=== PATIENT | male | born 1940 | race Caucasian/White ===

== ENCOUNTER 2017-02-19 06:02 | Observation (INO) | payer OTHER, MEDICARE ==
[2017-02-12 10:13] LABS: BASOPHILS 0.2 %; BASOPHILS ABSOLUTE 0.01 10/3/uL (0.0-0.16); EOSINOPHILS 1.3 %; EOSINOPHILS ABSOLUTE 0.06 10/3/uL (0.0-0.53); HEMOGLOBIN 13.5 g/dL (13.6-17.8); IMMATURE GRANULOCYTES 0.2 %; IMMATURE GRANULOCYTES ABSOLUTE 0.01 10/3/uL (0.0-0.11); LYMPHOCYTES 32.3 %; MEAN CORPUS HGB CONC 34.7 g/dL (32.0-36.0); MEAN CORPUSCULAR HEMOGLOB 31.2 pg (26.0-34.0); MEAN CORPUSCULAR VOLUME 89.8 fL (80-100); MEAN PLATELET VOLUME 10.3 fL (9.2-13.0); MONOCYTES 9.5 %; MONOCYTES ABSOLUTE 0.44 10/3/uL (0.21-1.20); NEUTROPHILS 56.5 %; NEUTROPHILS ABSOLUTE 2.63 10/3/uL (2.02-8.40); PLATELET COUNT 174 10/3/uL (150-400); RBC DISTRIBUTION WIDTH 13.4 % (12.0-16.0); RED CELL COUNT 4.33 10/6/uL (4.7-6.1); WHITE BLOOD CELLS 4.7 10/3/uL (4.5-10.5)
[2017-02-12 10:14] LABS: HEMATOCRIT 38.9 % (40.0-51.0); MANUAL DIFF NO %
[2017-02-12 10:32] LABS: A/G RATIO 1.5 (0.7-1.9); ALBUMIN 3.9 G/DL (3.5-5.0); ALKALINE PHOSPHATASE 73 U/L (45-117); BUN (BLOOD UREA NITROGEN) 28 MG/DL (6-23); CALCIUM, SERUM 9.1 MG/DL (8.5-10.4); CHLORIDE, SERUM 108 MMOL/L (96-112); CO2 (CARBON DIOXIDE) 30 MMOL/L (24-34); CREATININE 0.91 MG/DL (0.70-1.30); GFR AFRICAN AMERICAN 96 ML/MIN (>=60); GFR NON AFRICAN AMERICAN 83 ML/MIN (>=60); GLOBULIN 2.6 G/DL (2.5-4.1); GLUCOSE, SERUM 92 MG/DL (60-99); POTASSIUM, SERUM 5.1 MMOL/L (3.5-5.3); SGOT(AST) 21 U/L (5-40); SGPT(ALT) 31 U/L (5-65); SODIUM, SERUM 141 MMOL/L (135-148); TOTAL BILIRUBIN 0.7 MG/DL (0-1.2); TOTAL PROTEIN 6.5 G/DL (6.0-8.5)
--- NOTE | ~2017-02-19 | OP ---
Record Of Operation [facility] [address] [place] [address] NAME: XENA LUCAS : 44 STATUS : DIS Marilee PAT#: [id number] AGE: 76 ADM/REG DATE : 02/19/17 MR#: [id number] REPORT SERV DATE: 02/20/17 DICTATED BY: HAVEN GARBER III DATE: 02/20/17 REPORT STATUS : Draft TRANSCRIBED BY: MODL DATE: 02/20/17 DATE OF PROCEDURE: 02/20/2017 ADDENDUM It should be noted that the left lower quadrant incisional hernia was incarcerated. This was a recurrent incarcerated incisional hernia. The bowel which was in the hernia was reduced laparoscopically. TONY/CARMELA Haven Garber III, M.D. / [id number] CC: Pia Morocho III, D.O.
--- NOTE | ~2017-02-19 | OP ---
Record Of Operation [facility] [address] [place]. [address] NAME: XENA LUCAS : 42 STATUS : ADM Marilee PAT#: [id number] AGE: 76 ADM/REG DATE : 02/19/17 MR#: [id number] REPORT SERV DATE: 02/19/17 DICTATED BY: HAVEN GARBER III DATE: 02/19/17 REPORT STATUS : Draft TRANSCRIBED BY: MODBlaire DATE: 02/19/17 DATE OF PROCEDURE: 02/19/2017 PREOPERATIVE DIAGNOSES: 1. 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 2. Symptomatic supraumbilical incisional hernia. POSTOPERATIVE DIAGNOSES: 1. 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 2. Symptomatic supraumbilical incisional hernia. PROCEDURES: Laparoscopic assisted repair of a recurrent symptomatic left lower quadrant spigelian hernia and repair of supraumbilical hernia. SURGEON: Haven Garber M.D. ANESTHESIA: General with intubation. COMPLICATIONS: None. ESTIMATED BLOOD LOSS: 30 mL. SPECIMENS: None. DRAINS: Von-Barnes in subcutaneous tissue and left lateral abdominal wall incision. LAP AND SPONGE COUNT: Correct x3. BRIEF HISTORY: This 76-year-old male presented with a symptomatic recurrent left lower quadrant spigelian hernia. This has been repaired on two separate occasions in the past. He also has supraumbilical hernia which was incisional hernia related to previous trocar site. It was felt that repair of these was indicated. We planned to attempt to perform this laparoscopically, but due to his previous multiple procedures, it was explained that open procedure might be required. The high risk for recurrence of these hernias was explained, the high risk for enterotomy or other surgical complications because of his multiple abdominal operations was explained. The procedure risks, benefits, and alternatives, including but not limited to the risk for bleeding, infection, enterotomy, injury to any abdominal structure, postop small bowel obstruction, ileus, recurrence of either or both hernias, seroma formation, hematoma formation, infection of mesh or enterocutaneous fistula requiring removal of the mesh, and unforeseen complications including deep venous thrombosis, pulmonary embolus, myocardial infarction, stroke, pneumonia, and were fully and completely explained to the patient prior to the surgery. The expected length of the recovery was explained. The fact that this was a major operation with risk for major morbidity and mortality was explained. The patient had questions, which were answered. He fully understood the risks and agreed to the surgery as planned. Record Of Operation [facility] [address] [place]. [address] NAME: XENA LUCAS : 44 STATUS : ADM Marilee PAT#: [id number] AGE: 76 ADM/REG DATE : 02/19/17 MR#: [id number] REPORT SERV DATE: 02/19/17 DICTATED BY: HAVEN GARBER III DATE: 02/19/17 REPORT STATUS : Draft TRANSCRIBED BY: CARMELA DATE: 02/19/17 DESCRIPTION OF PROCEDURE: After being properly identified and after discussing the risks and benefits of the surgery with the patient and his family in the preoperative area again, he was taken to the operating room and placed in supine position on the operating room table. It should be noted that the hernias were identified with his help in the preoperative area. General anesthesia was administered. He was intubated without difficulty. A De León catheter was inserted. The abdomen was prepped and draped sterilely in the usual fashion. After an appropriate "time-out" per JCAHO standards, a small vertical incision was made in the subxiphoid area in the midline. The incision was continued through the subcutaneous tissue. Hemostasis was controlled with the cautery. The incision was continued through the fascia. The abdominal cavity was entered under direct vision. A #51-choziuq-gmyowm Origin trocar was placed under direct vision into the peritoneal cavity. The balloon was inflated. The abdominal cavity was insufflated to about 13 mmHg of carbon dioxide. The laparoscope was placed through the trocar. The abdomen was inspected. The hernia was located in the left lower quadrant. There was a large amount of bowel and omentum adherent to the previously placed mesh. A small vertical incision was made just above the umbilicus over the supraumbilical hernia. #10 trocar was placed through this under direct vision with the laparoscope. A 5 mm trocar was then placed in the midline, midway between the umbilicus and the pubis, under direct vision with the laparoscope. The patient was rotated slightly to his right. The appropriate instruments were placed through the trocars. Using sharp dissection, the adhesions between the omentum and the underside of the abdominal wall in the left lower quadrant were divided. There was noted to be mesh in place. There was noted to be the left colon densely adherent to the mesh in this area. The hernia was identified. The colon was densely adherent to the mesh. We tried to dissect this very carefully meticulously away from the mesh, but it was so densely adherent, I felt I could not proceed safely laparoscopically. Multiple attempts again were made to carefully dissect or tease the colon away from the mesh, but it was so adherent that it would not safely free up to allow for us to proceed laparoscopically. Based on this, it was my judgment that it was not safe to proceed laparoscopically and that open procedure would be required. A vertical incision was made in the left lower quadrant directly over the fascial defect. The incision was continued through the subcutaneous tissue. Hemostasis was controlled with the cautery. The incision was continued through the fascia. Hemostasis was controlled with the cautery. The external oblique fascia was opened. We identified the fascial defect in the internal oblique fascia. Using sharp dissection, the tissues around this anteriorly and posteriorly were mobilized. Great care was taken not to injure the underlying bowel which was still adherent. The fascial defect itself was fairly small, about 2 cm in size. It was felt that this fascial defect could be reapproximated, using the previously placed mesh, which was still anchored to the fascia. The fascial defect in this area was then closed under direct vision with interrupted #1 Prolene sutures. The previously placed mesh was incorporated into the closure as it was Record Of Operation [address] [place]. [address] NAME: XENA LUCAS : 44 STATUS : ADM Marilee PAT#: [id number] AGE: 76 ADM/REG DATE : 02/19/17 MR#: [id number] REPORT SERV DATE: 02/19/17 DICTATED BY: HAVEN GARBER III DATE: 02/19/17 REPORT STATUS : Draft TRANSCRIBED BY: MODL DATE: 02/19/17 still intact and attached. This resulted in good closure of this defect. Great care was taken not to injure the underlying colon. The external oblique fascia and muscle were then closed with interrupted #1 Prolene sutures. A Von-Barnes drain was brought through a separate stab wound and placed in the subcutaneous tissue. Hemostasis was controlled. The subcutaneous tissue was closed with a running 3-0 chromic suture. The skin was closed a with running subcuticular 4-0 Monocryl stitch. The abdominal cavity was then re-insufflated. We then inspected the area with the laparoscope. The hernia was noted to be repaired. The colon was still adherent to the area, but had not been injured or encroached upon and the defect was closed nicely. At this time, all trocars were removed. Hemostasis was assured. The fascia of both the subxiphoid and supraumbilical incisions was closed with interrupted 0 Prolene sutures. The supraumbilical hernia was closed in this fashion with interrupted 0 Prolene sutures. This came together nicely with no tension. It was felt that mesh repair was not required. Hemostasis was assured. The subcutaneous tissue of each of this incision was closed with running 3-0 chromic suture. The skin incisions were closed with running subcuticular 4-0 Monocryl stitches. The lower trocar site was also closed by closing the skin in this fashion. The incisions were injected with 0.5% Marcaine. Dressings were applied. Anesthesia was reversed, and the patient was taken to the recovery room in stable condition. He tolerated the procedure well. His family was informed the results of surgery. The patient will remain in the hospital for postoperative care. I explained the patient's that this left lower quadrant hernia is at high risk for recurrence again because of the patient's weight and the fact that this was the third repair for this particular hernia. She was advised that he will need to be extremely careful for the next 8 weeks in terms of minimal weight lifting and straining. TONY/CARMELA Haven Garber III, M.D. / [id number] CC: Haven Garber III, M.D.
--- NOTE | ~2017-02-19 | PREOPHP ---
PreOp History and Physical [facility] [address] [place]. [address] NAME: XENA LUCAS : 44 [place]US : [place] [facility]#: [id number] AGE: 76 ADM/REG DATE : MR#: [id number] REPORT SERV DATE: 02/18/17 DICTATED BY: HAVEN GARBER III DATE: 01/31/17 REPORT STATUS : Draft TRANSCRIBED BY: MODL DATE: 01/31/17 HISTORY OF PRESENT ILLNESS: This 76-year-old male comes to the operating room for laparoscopic repair, possible laparotomy for recurrent supraumbilical hernia and left lower quadrant abdominal wall hernia. The patient has previous supraumbilical and left lower quadrant abdominal hernias. These were repaired elsewhere in 04/2015. He had a recurrence of the left lower quadrant hernia, which was repaired in 08/2016. Both of these hernias have recurred. They are symptomatic in terms of local pain and discomfort and obstructive symptoms. The patient has had no nausea, vomiting, or definite evidence for obstruction. He comes now for laparoscopic repair of this hernias, possible laparotomy. I have explained the patient fully that open procedure may likely be required because of the fact these are recurrent and because of his obesity. PAST MEDICAL HISTORY: Essentially unremarkable, otherwise. PAST SURGICAL HISTORY: Includes periumbilical hernia repair and bilateral inguinal hernia repair. Left hip replacement, right hip replacement, left lower quadrant spigelian hernia repair x2. FAMILY HISTORY: Positive for diabetes and lung cancer. MEDICATIONS: None regularly. ALLERGIES: NONE. SOCIAL HISTORY: No history of tobacco or alcohol use. REVIEW OF SYSTEMS: The complains of fatigue, swelling in the hands and feet, and back pain. His 14-point review of systems is otherwise unremarkable. PHYSICAL EXAMINATION: GENERAL: Reveals an obese male, in no acute distress. He is alert and oriented x3. VITAL SIGNS: Blood pressure 136/82, pulse 71, and temperature 97.1. HEENT: Unremarkable. NEUROLOGIC: Cranial nerves 2 through 12 are normal. LUNGS: Clear. CARDIAC: Normal. ABDOMEN: Soft and nontender. About 1-2 cm above the umbilicus, there is a palpable incisional hernia beneath the midline incision. The hernia is reducible. In the left lower quadrant, the patient has a fullness with tenderness. There is no definite fascial defect noted. In the left upper quadrant of anterior abdominal wall, there is a soft tissue mass consistent with a lipoma. In the left lower quadrant, he has an incision with no definite mass palpable. There is some tenderness in this area. EXTREMITIES: Normal with no edema. LABORATORY DATA: Recent CT scan of the abdomen and pelvis, which I have reviewed, shows evidence for recurrent left flank spigelian-type hernia containing fat and a loop of PreOp History and Physical [address] [place]. [address] NAME: XENA LUCAS : 44 STATUS : [place] [facility] [place]#: [id number] AGE: 76 ADM/REG DATE : MR#: [id number] REPORT SERV DATE: 02/18/17 DICTATED BY: HAVEN GARBER III DATE: 01/31/17 REPORT STATUS : Draft TRANSCRIBED BY: CARMELA DATE: 01/31/17 nonobstructive descending and sigmoid colon. There is noted to be a 2.3 cm pocket of fluid adjacent to this. ASSESSMENT: 76-year-old male with: 1. Symptomatic recurrent supraumbilical hernia and symptomatic and recurrent left lower quadrant spigelian hernia. 2. Obesity. PLAN: The patient comes to the operating room now for laparoscopic repair of this hernias, possible laparotomy. The procedure risks, benefits, and alternatives, including not limited to the risk for bleeding, infection, enterotomy, injury to abdominal structure, postop small bowel obstruction, ileus, recurrence of either or both hernias, seroma formation, hematoma formation, need for use of mesh with risk of infection of mesh or enterocutaneous fistula requiring removal of the mesh, possibly a postoperative bulging the mesh. The definite possible need and probable need for laparotomy, and unforeseen complications including deep venous thrombosis, pulmonary embolus, myocardial infarction, stroke, pneumonia, and , have been fully and completely explained to the patient at length prior to surgery. The fact that this is a major operation with risk for major morbidity and mortality has been explained. Expected length of recovery has been explained. The patient's questions have been answered. He clearly understands the risks and agrees to surgery as planned. TONY/CARMELA Haven Garber III, M.D. / [id number]
[~2017-02-19 06:02] MED LIST: *DENIES; ASAB PO; CYMBALTA60 PO
[2017-02-20 04:50] LABS: BASOPHILS 0 %; EOSINOPHILS 0.1 %; EOSINOPHILS ABSOLUTE 0.01 10/3/uL (0.0-0.53); HEMATOCRIT 37.3 % (40.0-51.0); HEMOGLOBIN 12.8 g/dL (13.6-17.8); IMMATURE GRANULOCYTES 0.2 %; IMMATURE GRANULOCYTES ABSOLUTE 0.03 10/3/uL (0.0-0.11); LYMPHOCYTES 9.4 %; LYMPHOCYTES ABSOLUTE 1.16 10/3/uL (0.67-4.30); MEAN CORPUS HGB CONC 34.3 g/dL (32.0-36.0); MEAN CORPUSCULAR HEMOGLOB 31.5 pg (26.0-34.0); MEAN CORPUSCULAR VOLUME 91.9 fL (80-100); MEAN PLATELET VOLUME 10.8 fL (9.2-13.0); NEUTROPHILS 81.3 %; NEUTROPHILS ABSOLUTE 9.99 10/3/uL (2.02-8.40); PLATELET COUNT 165 10/3/uL (150-400); RBC DISTRIBUTION WIDTH 13.1 % (12.0-16.0); RED CELL COUNT 4.06 10/6/uL (4.7-6.1)
[2017-02-20 04:51] LABS: MANUAL DIFF NO %; WHITE BLOOD CELLS 12.3 10/3/uL (4.5-10.5)
[2017-02-20 05:07] LABS: CALCIUM, SERUM 8.7 MG/DL (8.5-10.4); CHLORIDE, SERUM 106 MMOL/L (96-112); CO2 (CARBON DIOXIDE) 28 MMOL/L (24-34); GFR AFRICAN AMERICAN 102 ML/MIN (>=60); GFR NON AFRICAN AMERICAN 88 ML/MIN (>=60); SODIUM, SERUM 139 MMOL/L (135-148)
[2017-02-20 05:09] LABS: BUN (BLOOD UREA NITROGEN) 12 MG/DL (6-23); GLUCOSE, SERUM 136 MG/DL (60-99); POTASSIUM, SERUM 3.8 MMOL/L (3.5-5.3)
[2017-02-20] MEDS ORDERED: LIQUITEARS OPH (08:29)
[2017-02-20] MEDS ORDERED: PERCOCET 7.5/321 TAB PO (08:29)
== END 2017-02-20 09:42 | disposition home or self-care (01) ==
LOC: SDC 06:02 → SDC/OF 10:44 → 5SO 11:22
PROVIDERS: Surgery
PROC: 0WQF4ZZ Repair Abdominal Wall, Percutaneous Endoscopic Approach (ICD-10-PCS; principal; 2017-02-19 07:45)
DX: K43.0 Incisional hernia with obstruction, without gangrene (principal); R94.31 Abnormal electrocardiogram [ECG] [EKG]; E66.9 Obesity, unspecified; Z96.643 Presence of artificial hip joint, bilateral; Z83.3 Family history of diabetes mellitus; Z80.1 Family history of malignant neoplasm of trachea, bronchus and lung
CPT/HCPCS: 71020; 80048; 80053; 85025; 87641; 93005; 96374; 96375; 96376; A9270-GY; G0378; J0690; J1885; J2250; J2405; J2710; J3010